=== PATIENT | female | born 1985 | race Caucasian/White ===

== ENCOUNTER 2021-09-23 10:42 | Emergency (ER) | payer SELFPAY ==
[~2021-09-23] VITALS: Ht 154.9 cm; Wt 79.4 kg
[2021-09-23 11:57] VITALS: BP 166/111
--- NOTE | 2021-09-23 12:02 | NUR ---
TENT 2.
--- NOTE | 2021-09-23 14:24 | NUR ---
PT DISCHARGED WITHOUT DISCHARGE PAPERWORK
[2021-09-23 14:26] VITALS: BP 166/111
== END 2021-09-23 14:24 | disposition home or self-care (01) ==
LOC: MED 10:42
DX: S89.301A Unspecified physeal fracture of lower end of right fibula, initial encounter for closed fracture (principal); W19.XXXA Unspecified fall, initial encounter; Y93.89 Activity, other specified; Y92.89 Other specified places as the place of occurrence of the external cause; Y99.8 Other external cause status
CPT/HCPCS: 73610; 99283